=== PATIENT | female | born 1955 | race African-American/Black ===

== ENCOUNTER 2017-06-28 19:34 | Emergency (ER) | payer MEDICAID, MEDICARE ==
[~2017-06-28] VITALS: Ht 170.2 cm; Wt 118.0 kg
[2017-06-28 19:45] VITALS: BP 172/82
[2017-06-28 20:48] LABS: HEMATOCRIT. 30.8 % (36.0-48.0); MEAN CORPUSCULAR VOLUME 88.8 fL (81.0-99.0); MEAN PLATELET VOLUME 9.2 fl (7.4-10.4); PLATELET 335 x1000/uL (130-400); RED BLOOD CELL COUNT 3.46 mill/uL (4.2-5.4); RED CELL DISTRIBUTION WIDTH 13.1 % (11.6-14.6)
[2017-06-28 20:54] LABS: CHLORIDE 103 mEq/L (98-107)
[2017-06-28 20:57] LABS: INR 1.2
[2017-06-28 21:59] LABS: NUCLEATED RED BLOOD CELLS 1 /100 WBC; PLATELET ESTIMATE NORMAL
== END 2017-06-28 21:57 | disposition left against medical advice (07) ==
LOC: ER 20:57
DX: R06.03 Acute respiratory distress (principal); R05 Cough; J45.909 Unspecified asthma, uncomplicated; E11.9 Type 2 diabetes mellitus without complications; Z87.01 Personal history of pneumonia (recurrent)
CPT/HCPCS: 36415; 80053; 83605; 85025; 85610; 87040; 99284

== ENCOUNTER 2024-08-18 11:07 | Emergency (ER) | payer BC, OTHER ==
[~2024-08-18] VITALS: Ht 170.2 cm; Wt 109.0 kg
[~2024-08-18 11:07] MED LIST: ALBU18HF2 PO; APIX2.5T MT; ATOR40TA70 PO; CALC667C PO; CARV12.545 PO; EMPA10TA PO; GABA-529 MT; HYDR-4009 PO; HYDR100T31 PO; INSU100I28 SUBCUT; LEVO150T8 PO; LIFI1DRO5 EACHEYE; PANT40TA51 PO; QUET400T12 PO; SACU1TAB PO; SPIR25TA6 PO
[2024-08-18 11:13] VITALS: TEMP 36.7; O2SAT 96
[2024-08-18 11:57] LABS: BASOPHILS % 0.6 % (0.0-2.0); DIFFERENTIAL COMMENT 0; EOSINOPHILS % 4.3 % (0.0-5.0); HEMATOCRIT. 37.6 % (36.0-48.0); HEMOGLOBIN. 11.5 g/dL (12.0-16.0); LYMPHOCYTES % 16.1 % (20.0-50.0); MEAN CORPUSCULAR HEMOGLOBIN 28.9 pg (28.0-32.0); MEAN CORPUSCULAR HGB CONC 30.6 g/dL (31.0-37.0); MEAN CORPUSCULAR VOLUME 94.5 fL (81.0-99.0); MEAN PLATELET VOLUME 7.9 fl (7.4-10.4); MONOCYTES % 10.1 % (2.0-8.0); NEUTROPHILS % 68.9 % (40.0-76.0); PLATELET 163 x1000/uL (130-400); RED BLOOD CELL COUNT 3.98 mill/uL (4.2-5.4); RED CELL DISTRIBUTION WIDTH 19.8 % (11.6-14.6); WHITE BLOOD COUNT 10.1 x1000/uL (4.5-11.0)
[2024-08-18 12:05] LABS: CHLORIDE 101 mEq/L (98-107); POTASSIUM 4.4 mEq/L (3.5-5.1); SODIUM 136 mEq/L (136-145)
[2024-08-18 12:06] LABS: CARBON DIOXIDE 27 mEq/L (21-32)
[2024-08-18 12:07] LABS: CALCIUM 9.2 mg/dL (8.7-10.4)
[2024-08-18 12:11] LABS: GLUCOSE 120 mg/dL (70-105); UREA NITROGEN BLOOD 26 mg/dL (9-23)
[2024-08-18 12:33] LABS: CREATININE 3.9 mg/dL (0.6-1.0); TROPONIN I HIGH SENSITIVITY < 4 ng/L (3.0-34)
[2024-08-18 13:38] LABS: HEPATITIS B SURFACE ANTIGEN NEGATIVE (Negative)
[2024-08-18 13:59] LABS: HEPATITIS A AB IGM NEGATIVE (Negative); HEPATITIS B CORE AB IGM NEGATIVE (Negative)
[2024-08-18 14:00] LABS: HEPATITIS C AB NON REACTIVE (Neg) (Negative)
[2024-08-18 14:34] VITALS: BP 114/65; PULSE 73; RESP 16; O2SAT 98
[2024-08-18 15:04] LABS: TROPONIN I HIGH SENSITIVITY < 4 ng/L (3.0-34)
== END 2024-08-18 15:14 | disposition home or self-care (01) ==
LOC: ER 11:07
DX: I95.9 Hypotension, unspecified (principal); R53.1 Weakness; I13.2 Hypertensive heart and chronic kidney disease with heart failure and with stage 5 chronic kidney disease, or end stage renal disease; I50.9 Heart failure, unspecified; E11.22 Type 2 diabetes mellitus with diabetic chronic kidney disease; N18.6 End stage renal disease; Z79.01 Long term (current) use of anticoagulants; Z79.899 Other long term (current) drug therapy; Z79.84 Long term (current) use of oral hypoglycemic drugs; Z79.4 Long term (current) use of insulin; Z99.2 Dependence on renal dialysis; Z98.890 Other specified postprocedural states
CPT/HCPCS: 36415; 71045; 80048; 83880; 84484; 85025; 86705; 86709; 87340; 93005; 99285; A4606

== ENCOUNTER 2024-11-20 13:34 | Emergency (ER) | payer BC, MEDICAID ==
[~2024-11-20] VITALS: Ht 165.1 cm; Wt 79.0 kg
[2024-11-20 13:50] VITALS: O2SAT 99
[2024-11-20 14:57] LABS: BASOPHILS % 0.6 % (0.0-2.0); EOSINOPHILS % 2.0 % (0.0-5.0); HEMATOCRIT. 33.9 % (36.0-48.0); HEMOGLOBIN. 10.9 g/dL (12.0-16.0); LYMPHOCYTES % 16.1 % (20.0-50.0); MEAN PLATELET VOLUME 8.1 fl (7.4-10.4); MONOCYTES % 11.3 % (2.0-8.0); NEUTROPHILS % 70.0 % (40.0-76.0); PLATELET 155 x1000/uL (130-400); RED BLOOD CELL COUNT 3.85 mill/uL (4.2-5.4); RED CELL DISTRIBUTION WIDTH 16.6 % (11.6-14.6)
[2024-11-20 15:16] LABS: CREATININE 3.2 mg/dL (0.6-1.0); UREA NITROGEN BLOOD 20 mg/dL (9-23)
[2024-11-20 15:18] LABS: ASPARTATE AMINOTRANSFERASE 14 IU/L (<34); BILIRUBIN DIRECT 0.2 mg/dL (<=3.0); BILIRUBIN TOTAL 0.5 mg/dL (0.1-1.0); PROTEIN TOTAL 7.2 g/dL (6.0-8.3)
[2024-11-20 15:33] VITALS: BP 110/55; PULSE 76; RESP 16; TEMP 37; O2SAT 99
== END 2024-11-20 16:05 | disposition home or self-care (01) ==
LOC: ER 13:34
DX: T82.898A Other specified complication of vascular prosthetic devices, implants and grafts, initial encounter (principal); J45.909 Unspecified asthma, uncomplicated; E11.9 Type 2 diabetes mellitus without complications; E03.9 Hypothyroidism, unspecified; I13.2 Hypertensive heart and chronic kidney disease with heart failure and with stage 5 chronic kidney disease, or end stage renal disease; I50.9 Heart failure, unspecified; N18.9 Chronic kidney disease, unspecified; N18.6 End stage renal disease; Z79.899 Other long term (current) drug therapy; Z99.2 Dependence on renal dialysis; Z95.0 Presence of cardiac pacemaker; X58.XXXA Exposure to other specified factors, initial encounter
CPT/HCPCS: 36415; 71046; 80048; 80076; 85025; 99284